=== PATIENT | female | born 1950 | race Caucasian/White ===

== ENCOUNTER 2017-11-20 13:12 | Inpatient (IN) | payer MEDICARE, OTHER ==
[~2017-11-20] VITALS: Ht 144.8 cm; Wt 78.7 kg
[~2017-11-20 13:12] MED LIST: ASPIRIN 81M81 MG/TA2 PO; CALCIUM 600-D 61 TAB PO; CENTRUM SILVER1 TAB PO; CEPHALEXIN500 M1 PO; CORDARONE200 MG/TAB PO; COUMADIN 1MG1 MG/TAB PO; FOLIC ACID0.4 MG PO; KLOR-CON M2020 MEQ PO; LASIX 20MG TABL20 MG PO; LIPITOR 40MG TA40 MG PO; LIPITOR 80MG80 MG PO; LOFIBRA67 MG PO; LOPID 600M600 MG/TAB PO; LOTENSIN40 MG PO; MAGNESIUM250 M1 PO; MULTAQ400 MG PO; PRILOSEC 20MG20 MG PO; TAMBOCOR 1100 MG/TAB PO; ULTRAM 50MG TAB50 MG PO
[2017-12-05 09:19] VITALS: BP 104/48; PULSE 66; TEMP 98.4
[2017-12-05 09:30] LABS: HEMATOCRIT 44.2 % (37.0-47.0); HEMOGLOBIN 14.9 g/dl (12.5-16.0); MEAN CELL VOLUME 91 fl (80.0-100.0); MEAN CORPUSCULAR HEMOGLOBIN 31 pg (27.0-31.0); MEAN CORPUSCULAR HGB CONC 34 g/dl (33.0-37.0); MEAN PLATELET VOLUME 11.3 fl (7.4-10.4); PLATELET COUNT 310 K/mm3 (130-400); RED BLOOD COUNT 4.85 M/mm3 (4.10-5.30)
[2017-12-05 09:35] LABS: INR 2.5 (0.8-3.0); PROTHROMBIN TIME 29.5 SECONDS (9.7-12.8)
[2017-12-05 09:37] LABS: ALBUMIN 4.4 gm/dL (3.5-5.0); BILIRUBIN,TOTAL 0.7 mg/dL (0.0-1.0); CALCIUM 9.7 mg/dL (8.4-10.2); CREATININE, serum 1.1 mg/dL (0.52-1.25); MAGNESIUM 1.8 mg/dL (1.6-2.3); POTASSIUM 4.7 mmol/L (3.4-5.0); TOTAL PROTEIN 7.6 gm/dL (6.4-8.2)
[2017-12-05] MEDS ORDERED: CARDIZEM 60MG T60 MG PO (09:41)
[2017-12-05] MEDS ORDERED: ATIVAN 0.50.5 MG/TAB PO (09:42)
[2017-12-05] MEDS ORDERED: XANAX 0.5MG0.5 MG PO (09:43)
[2017-12-05] MEDS ORDERED: LEADER FIBER1 POW (09:44)
[2017-12-05 12:37] VITALS: BP 118/48; PULSE 75; TEMP 98.5
[2017-12-05 16:36] VITALS: BP 96/34; PULSE 67; TEMP 98
[2017-12-05 20:12] VITALS: BP 118/68; PULSE 80; TEMP 98.4
[2017-12-05 23:49] VITALS: BP 96/56; PULSE 71; TEMP 98
[2017-12-06 04:54] VITALS: BP 112/54; PULSE 67; TEMP 97
[2017-12-06 07:27] LABS: INR 2.9 (0.8-3.0); PROTHROMBIN TIME 34.8 SECONDS (9.7-12.8)
[2017-12-06 07:33] VITALS: BP 106/56; PULSE 62; TEMP 98.2
[2017-12-06 12:08] VITALS: BP 124/47; PULSE 79; TEMP 98.5
[2017-12-06 16:02] VITALS: BP 98/77; PULSE 91; TEMP 98
[2017-12-06 20:11] VITALS: BP 133/86; PULSE 79; TEMP 97.5
[2017-12-07] VITALS (7 sets, daily range): BP systolic 93–127; BP diastolic 48–68; PULSE 68–74; TEMP 97.4–98.4
[2017-12-07 06:44] LABS: INR 3.6 (0.8-3.0); PROTHROMBIN TIME 42.5 SECONDS (9.7-12.8)
[2017-12-08] VITALS (7 sets, daily range): BP systolic 96–113; BP diastolic 49–68; PULSE 62–87; TEMP 97.5–98.5
[2017-12-08 06:52] LABS: INR 4.8 (0.8-3.0)
[2017-12-08 06:58] LABS: PROTHROMBIN TIME 57.7 SECONDS (9.7-12.8)
[2017-12-09 01:19] VITALS: BP 89/45; PULSE 60
[2017-12-09 02:56] VITALS: BP 89/45; PULSE 60; TEMP 98.7
[2017-12-09 04:09] VITALS: BP 88/46; PULSE 72
[2017-12-09 06:46] LABS: BASO % 0.3 % (0.0-2.0); EOS # 0.2 (0.0-0.7); EOS % 1.8 % (0-4.0); GRAN # 5.1 (1.4-6.5); GRAN % 57.5 % (42.2-75.2); HEMATOCRIT 40.7 % (37.0-47.0); HEMOGLOBIN 13.8 g/dl (12.5-16.0); LYMPH # 2.4 (1.2-3.4); LYMPH % 27.5 % (20.0-51.0); MEAN CELL VOLUME 90 fl (80.0-100.0); MEAN CORPUSCULAR HEMOGLOBIN 31 pg (27.0-31.0); MEAN CORPUSCULAR HGB CONC 34 g/dl (33.0-37.0); MEAN PLATELET VOLUME 11.7 fl (7.4-10.4); MONO # 1.1 (0.1-0.6); MONO % 12.6 % (1.7-9.3); PLATELET COUNT 256 K/mm3 (130-400); RED BLOOD COUNT 4.51 M/mm3 (4.10-5.30); REDCELL DISTRIBUTION WIDTH-CV 13.9 % (11.5-14.5)
[2017-12-09 06:47] LABS: INR 4.6 (0.8-3.0)
[2017-12-09 06:49] LABS: PROTHROMBIN TIME 55.3 SECONDS (9.7-12.8)
[2017-12-09 09:09] VITALS: BP 108/77; PULSE 74; TEMP 97.8
[2017-12-09 09:51] VITALS: BP 112/38; PULSE 62
[2017-12-09] MEDS ORDERED: COUMADIN 1MG1 MG/TAB PO (10:20)
[2017-12-09] MEDS ORDERED: CORDARONE200 MG/TAB PO (10:24)
[2017-12-09 12:41] LABS: CALCIUM 9.2 mg/dL (8.4-10.2); CREATININE, serum 1.48 mg/dL (0.52-1.25); POTASSIUM 4.6 mmol/L (3.4-5.0)
== END 2017-12-09 14:40 | disposition home or self-care (01) | DRG 310 ==
LOC: MEDICAL 12-05 08:07
PROVIDERS: Internal Medicine Cardiovascular Disease
PROC: 5A2204Z Restoration of Cardiac Rhythm, Single (ICD-10-PCS; principal; 2017-12-09)
DX: I48.0 Paroxysmal atrial fibrillation (principal); Z23 Encounter for immunization; I25.10 Atherosclerotic heart disease of native coronary artery without angina pectoris; I12.9 Hypertensive chronic kidney disease with stage 1 through stage 4 chronic kidney disease, or unspecified chronic kidney disease; N18.9 Chronic kidney disease, unspecified; I49.5 Sick sinus syndrome; Z95.0 Presence of cardiac pacemaker; Z79.01 Long term (current) use of anticoagulants
CPT/HCPCS: J2250; J3010

== ENCOUNTER 2018-02-12 09:43 | Day surgery (SDC) | payer MEDICARE, OTHER ==
[2018-02-12] VITALS (9 sets, daily range): BP systolic 103–146; BP diastolic 60–84; PULSE 62–76; TEMP 98–98.2
[~2018-02-12] VITALS: Ht 144.9 cm; Wt 77.2 kg
[~2018-02-12 09:43] MED LIST changes: +ATIVAN 0.50.5 MG/TAB PO; +CARDIZEM 60MG T60 MG PO; +LEADER FIBER1 POW; +XANAX 0.5MG0.5 MG PO
[2018-02-12 10:06] LABS: HEMATOCRIT 43.7 % (37.0-47.0); HEMOGLOBIN 14.6 g/dl (12.5-16.0); MEAN CELL VOLUME 94 fl (80.0-100.0); MEAN CORPUSCULAR HEMOGLOBIN 31 pg (27.0-31.0); MEAN CORPUSCULAR HGB CONC 33 g/dl (33.0-37.0); MEAN PLATELET VOLUME 10.6 fl (7.4-10.4); PLATELET COUNT 308 K/mm3 (130-400); RED BLOOD COUNT 4.66 M/mm3 (4.10-5.30)
[2018-02-12] MEDS ORDERED: CARTIA XT180 MG PO (10:13)
[2018-02-12 10:14] LABS: INR 1.6 (0.8-3.0); PROTHROMBIN TIME 18.8 SECONDS (9.7-12.8)
[2018-02-12 10:16] LABS: CALCIUM 9.3 mg/dL (8.4-10.2); CREATININE, serum 1.15 mg/dL (0.52-1.25); POTASSIUM 4.5 mmol/L (3.4-5.0)
[2018-02-12] MEDS ORDERED: ELIQUIS 5MG PO (11:34)
[2018-02-12] MEDS ORDERED: PACERONE200 MG PO (11:35)
== END 2018-02-12 12:50 | disposition home or self-care (01) ==
LOC: COL.CAR 09:43
PROVIDERS: Internal Medicine Cardiovascular Disease
DX: I48.0 Paroxysmal atrial fibrillation (principal); I25.10 Atherosclerotic heart disease of native coronary artery without angina pectoris; I10 Essential (primary) hypertension; K21.9 Gastro-esophageal reflux disease without esophagitis; M19.90 Unspecified osteoarthritis, unspecified site; F41.9 Anxiety disorder, unspecified; E78.5 Hyperlipidemia, unspecified; Z95.0 Presence of cardiac pacemaker; Z96.651 Presence of right artificial knee joint; Z88.2 Allergy status to sulfonamides; Z88.8 Allergy status to other drugs, medicaments and biological substances; Z79.01 Long term (current) use of anticoagulants; Z86.73 Personal history of transient ischemic attack (TIA), and cerebral infarction without residual deficits
CPT/HCPCS: G9654; J2250; J2704